=== PATIENT | male | born 1960 | race Caucasian/White ===

== ENCOUNTER → 2023-07-16 07:17 | Outpatient (REF) | payer BC, SELFPAY | LOC: DHCBS MAIN 07:17 | PROVIDERS: ATTENDING PHYSICIAN Internal Medicine Cardiovascular Disease; FAMILY PHYSICIAN Family Medicine | DX: I34.0 Nonrheumatic mitral (valve) insufficiency (principal); I50.32 Chronic diastolic (congestive) heart failure | CPT/HCPCS: 93306 ==

== ENCOUNTER → 2024-05-19 09:40 | Outpatient (REF) | payer BC, SELFPAY ==
[2024-05-19 10:50] LABS: ALT (SGPT) 21 U/L (0-50); AST (SGOT) 26 U/L (17-59); Albumin 4.2 g/dl (3.5-5.0); Alkaline Phosphatase 41 U/L (38-126); Blood Urea Nitrogen 19 mg/dl (9-20); Calcium 9.3 mg/dl (8.4-10.2); Carbon Dioxide 30 mmol/L (22-30); Chloride 102 mmol/L (98-107); Glucose 88 mg/dl (70-99); HDL Cholesterol 52 mg/dl; LDL Cholesterol, Calculated 52 mg/dl; Potassium 4.8 mmol/L (3.5-5.1); Sodium 139 mmol/L (135-145); Total Bilirubin 1.4 mg/dl (0.2-1.3); Total Cholesterol 120 mg/dl (50-199); Total Protein 7.3 g/dl (6.3-8.2); Triglyceride 84 mg/dl (10-149); Very Low Density Lipoprotein 16 mg/dl (0-30); eGFR > 60.00
[2024-05-19 10:59] LABS: NT-proBNP 939 pg/ml
[2024-05-19 11:21] LABS: TSH 0.61 uIU/ml (0.47-4.68)
== END ==
LOC: REG 09:40
PROVIDERS: ATTENDING PHYSICIAN Internal Medicine Cardiovascular Disease; FAMILY PHYSICIAN Family Medicine
DX: I10 Essential (primary) hypertension (principal); E78.00 Pure hypercholesterolemia, unspecified
CPT/HCPCS: 36415; 80053; 80061; 83880; 84443

== ENCOUNTER → 2024-06-10 07:28 | Outpatient (REF) | payer BC, SELFPAY | LOC: RCS 07:28 | PROVIDERS: ATTENDING PHYSICIAN Internal Medicine Cardiovascular Disease; FAMILY PHYSICIAN Family Medicine | DX: I21.09 ST elevation (STEMI) myocardial infarction involving other coronary artery of anterior wall (principal); I34.0 Nonrheumatic mitral (valve) insufficiency; I50.32 Chronic diastolic (congestive) heart failure | CPT/HCPCS: 93306 ==

== ENCOUNTER 2024-06-17 10:17 | Inpatient (IN) | payer BC, SELFPAY ==
--- NOTE | 2024-06-17 09:18 | W.PN.CARDCBS ---
Today's Communication / Plan
-
Start Tikosyn 500 mcg q 12 hours
Impression / Plan
-
PCP: Dr. Danielito Montelongo
Cardiology: Dr. NEREIDA Boykin
Impression:
Direct admission for Tikosyn load 06/17/24
Paroxysmal to persistent Afib
s/p PVI 03/2023
amiodarone stopped after PVI
Chronic Eliquis OAC
Chronic HFrEF
ICM EF 40-45% by echo 06/10/24
h/o orthostasis and near syncope 04/2024
Mild MR
Echo 06/10/24: EF 40 to 45% with mid and apical anteroseptal akinesis, mid and apical anterior, apical and apical lateral hypokinesis, mild to moderate MR, aortic sclerosis without stenosis, dilated right heart with mild TR and PAP 35 to 40 mmHg
Plan:
-Patient came to today as a direct admission for Tikosyn loading in the setting of paroxysmal, but recently more persistent A-fib. Patient has a history of cardioembolic anterior [place] treated at [facility] back in 04/2022. Thereafter
patient transferred care to . He had eventual PVI 03/2023 and thereafter his amiodarone was stopped. He was found to be in recurrent A-fib on 05/19/[address] Boykin talked to patient about Tikosyn loading and he was agreeable. In the interim
his Toprol-XL dose was increased and patient had an episode of what sounds like orthostasis and near syncope. Currently in A-fib with a heart rate in the 80s and BP 124/96. He is currently taking Toprol-XL 50 mg BID for rate control. He has not
missed any doses of Eliquis 5 mg BID.
-ECG reviewed by me shows A-fib with HR 85 bpm and QTc 442 ms.
-CrCl calculated by me is 134
-Start Tikosyn 500 mcg q 12 hours.
-Reviewed with patient and partner at length the Tikosyn loading protocol including monitoring of QTc and lowering dose as needed.
-Follow HR and BP and lower the Toprol XL 50 mg BID dose as needed
-Cont Eliquis 5 mg BID (age 63, wt 272 lbs)
-Patient with known ICM and EF 40 to 45% by last echo 06/10/2024
-Toprol XL as above
-Outpatient dose of spironolactone 12.5 mg daily will be continued
-Previous dose of Entresto 24/26 mg twice daily was stopped after the episode of orthostasis and near syncope 04/2024
-Outpatient dose of Jardiance 10 mg daily will be changed to Farxiga 10 mg daily this admission due to formulary reasons, but will resume Jardiance at time of discharge
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
Subjective
Date of Service: June 17, 2024
Feels well, no chest pain or palpitations
Objective
Labs:
Labs
Hgb Cancelled 06/16/24 07:27
Hct Cancelled 06/16/24 07:27
Plt Count Cancelled 06/16/24 07:27
Sodium Cancelled 06/16/24 07:27
Potassium Cancelled 06/16/24 07:27
BUN Cancelled 06/16/24 07:27
Creatinine Cancelled 06/16/24 07:27
Glucose Cancelled 06/16/24 07:27
CBC 06/17/2024: WBC 6.4, Hgb 15.9, PLT 187
CMP 06/17/2024: Sodium 136, potassium 4.3, BUN 20, creatinine 1.0, blood sugar 90, magnesium
Vital Signs and I&O:
124/96, HR 90, RR 16, pulse ox 95% on RA, temp 98.6
Physical Exam
Physical Exam
GEN: NAD. AAOx3
HEENT: EOMI, MMM
LUNGS: RA. No audible wheeze
CV: Afib on tele
ABD: ND
EXT: No edema B/L
NEURO: Gross non-focal
SKIN: No rash
[2024-06-17 10:41] VITALS: BP 124/96
[2024-06-17 10:42] VITALS: BMI 33.1
[2024-06-17] MEDS: FARXIGA PO ×2 (11:24→11:25)
[2024-06-17] MEDS: ALDACTONE PO ×2 (11:24→11:25)
[2024-06-17] MEDS: LASIX PO ×2 (11:24→11:25)
[2024-06-17] MEDS: LOW STRENGTH ASPIRIN PO ×2 (11:24→11:25)
[2024-06-17] MEDS: SYNTHROID PO (11:25)
[2024-06-17] MEDS: CRESTOR PO (11:25)
[2024-06-17 11:46] LABS: % Basophils 0.9 % (0-2); % Eosinophils 1.3 % (0-6); % Immature Granulocytes 0.2 % (0-0.5); % Monocytes 10.4 % (1.7-9.3); % Neutrophils 65.2 % (42.2-75.2); Absolute Basophils 0.1 10^3/uL (0-0.2); Absolute Eosinophils 0.1 10^3/uL (0-0.7); Absolute Lymphocytes 1.4 10^3/uL (1.2-3.4); Absolute Monocytes 0.7 10^3/uL (0.1-0.6); Absolute Neutrophils 4.2 10^3/uL (1.4-6.5); Hematocrit 48.8 % (39.0-52.0); Hemoglobin 15.9 g/dL (13.0-18.0); Mean Corp Hgb Conc. 32.6 g/dL (33.0-37.0); Mean Corpuscular Hgb 27.7 pg (27.0-31.0); Mean Corpuscular Volume 85.2 fL (80.0-94.0); Mean Platelet Volume 9.4 fL (7.4-10.4); Nucleated Red Blood Cells % 0 % (-); Platelet Count 187 10^3/uL (130-400); Red Blood Cell Count 5.73 10^6/uL (4.70-6.10); Red Cell Dist. Width 14.6 % (11.5-14.5); White Blood Cell Count 6.4 10^3/uL (4.8-10.8)
[2024-06-17 11:59] LABS: Blood Urea Nitrogen 20 mg/dl (9-20); Calcium 9.5 mg/dl (8.4-10.2); Carbon Dioxide 25 mmol/L (22-30); Chloride 105 mmol/L (98-107); Estimated Creatinine Clearance 110 ml/min; Glucose 90 mg/dl (70-99); Potassium 4.3 mmol/L (3.5-5.1); Sodium 136 mmol/L (135-145); eGFR > 60.00
--- NOTE | 2024-06-17 12:08 | W.CARD.TIKOS ---
Addendum entered and electronically signed by Nick Boykin MD 06/17/24 17:56:
63-year-old man who had a large anterior WI that was cardioembolic from atrial fibrillation in April 2022, initial EF 15 to 20%, treated with PCI. Ultimately, he underwent cardioversion and was started on amiodarone. His ejection fraction
improved to 47% by May 2022, and so ICD implantation was never performed. Ultimately he was referred for PVI in late 2022. He had self-limited atrial fibrillation thereafter.. He was evaluated by our office in late April 2024 and was in
atrial fibrillation which at that point we felt was persistent. A monitor was applied and this confirmed atrial fibrillation. An echocardiogram was repeated June 10, 2024. He had akinesis in the distribution of the mid LAD with an ejection
fraction of 40 to 45%. There was mitral annular calcification, mild to moderate mitral digitation, and a dilated atrium. His pulmonary artery pressure was 35 to 40 mmHg. He is now admitted for dofetilide loading and cardioversion.
Meds and allergies Per summary screen
PMH: In addition to above, hypertension, hyperlipidemia, mild mitral regurgitation, obstructive sleep apnea and heart failure with improved EF
PSH: Paraesophageal hernia repair, laparoscopic
Remainder of history per scanned office history and physical
134/96, pulse 100 irregular, no distress, head neck exam unremarkable, lungs clear, irregular rate and rhythm, no obvious murmurs, abdomen obese, extremities without edema
ECG atrial fibrillation, QTc 442 ms, anterior septal WI, possible inferior WI
Labs: Reviewed
Impression:
Persistent atrial fibrillation
Heart failure with improved EF, compensated
Cardioembolic anterior WI April 2022 status post PCI
PVI March 2023
Hypertension
Hypercholesterolemia
Mild mitral agitation
Obstructive sleep apnea
Plan:
Dofetilide loading and cardioversion
Original Note:
Initiate Tikosyn
-
I verify that the patient has not taken any verapamil (Isoptin/Calan), ketoconazole (Nizoral), cimetidine (Tagamet), trimethoprim (Trimpex), trimethoprim/sulfamethoxazole (Bactrim), megesterol (Megace), prochlorperazine (Compazine),
hydrochlorothiazide (HCTZ), dolutegravir (Tivicay) or any Class I or Class III anti-arrhythmic within the last three days
AND
I verify that the patient has not taken amiodarone within the last THREE months, or that the patient's amiodarone plasma concentration is <0.3 mcg/mL.
Creatinine 1.0 mg/dL (0.7-1.3) 06/17/24 11:21
Estimated Creat Clear 110 ml/min 06/17/24 11:21
CrCl calculated by me is 134 based on actual body weight 272 lbs
Does patient have a Ventricular Conduction Abnormality: No
I have assessed the baseline QTc interval (using QT for heart rate less than 60 bpm) and deemed the patient is appropriate for Dofetilide therapy. I understand that Tikosyn is contraindicated if the QTc is >440msec (500msec in patients with
ventricular conduction abnormalities).
Baseline QTc (in msec): 442
QTc interval is greater than 440msec without conduction abnormality OR greater than 500msec with a conduction abnormality, but acceptable to proceed per Cardiology attending.
Reason for Administration with Prolonged QTc: Other Atrial Arrhythmia
Ordering Physician: Nick Boykin
--- NOTE | 2024-06-17 12:10 | PTCARENOTE ---
Patient admitted to room 2247 for tikosyn loading. Patient in controlled AF on the monitor, oriented to the room and plan of care. Nursing admission assessment completed, labs drawn, EKG done, INT placed and plan to initiate tikosyn dose. Patient
offers no complaints, call tillman in reach, SO at the bedside.
[2024-06-17] MEDS: TIKOSYN 500 MCG PO ×2 (12:40→23:04)
--- NOTE | 2024-06-17 14:50 | CM ---
spoke to pt in room, he is prev indep, lives alone in a 2 story home with no steps to enter. no dc planning needs or dme's. plan is for [facility], clive following
[2024-06-17 15:34] VITALS: BP 134/96
--- NOTE | 2024-06-17 17:07 | W.PN.UPDATE ---
Update Note
Progress Note Update
QTc 494 ms on ECG 2 hours after initial dose of Tikosyn earlier today. Will continue with Tikosyn 500 mcg every 12 hours and follow-up on ECG after tonight's dose and can lower dose in the a.m. if needed.
[2024-06-17] MEDS: CRESTOR 40 MG PO (17:30)
[2024-06-17 18:58] VITALS: BP 139/100
[2024-06-17 19:39] VITALS: BP 125/88
[2024-06-17] MEDS: ELIQUIS 5 MG PO (19:39)
[2024-06-17] MEDS: TOPROL XL 50 MG PO (19:39)
--- NOTE | 2024-06-17 21:05 | PTCARENOTE ---
assumed care of patient at the change of shift. AAOx3. independent in the room. Afib on tele 70s-90s. bp stable. reviewed plan of care with patient and verbalized understanding. call tillman within reach. makes needs known.
[2024-06-17 23:03] VITALS: BP 112/83
[2024-06-18] VITALS (7 sets, daily range): BP systolic 118–142; BP diastolic 87–96; BMI 33.2
[2024-06-18 05:31] LABS: Blood Urea Nitrogen 17 mg/dl (9-20); Calcium 9.2 mg/dl (8.4-10.2); Carbon Dioxide 28 mmol/L (22-30); Chloride 101 mmol/L (98-107); Estimated Creatinine Clearance 110 ml/min; Glucose 89 mg/dl (70-99); Potassium 4.2 mmol/L (3.5-5.1); Sodium 135 mmol/L (135-145); eGFR > 60.00
[2024-06-18] MEDS: SYNTHROID 50 MCG PO (06:17)
--- NOTE | 2024-06-18 07:23 | W.PN.CARDCBS ---
Addendum entered and electronically signed by Devin Hogan DO 06/18/24 10:17:
I saw and examined the patient.
The Lvn's note was reviewed and I agree with the note.
Comment:
Plan:
Tikosyn dose reduced to 250 mcg given QTc prolonging
Cont to monitor EKG
CV tomorrow if he fails to convert on his own.
Cont Eliquis
Outpt follow up with Dr Boykin
Original Note:
Today's Communication / Plan
-
QTc up to 502 after 2nd dose of Tikosyn 500 mcg late last night, will cut dose to 250 mcg q 12 hours and follow ECG
Impression / Plan
-
PCP: Dr. Danielito Montelongo
Cardiology: Dr. NEREIDA Boykin
Impression:
Direct admission for Tikosyn load 06/17/24
Paroxysmal to persistent Afib
s/p PVI 03/2023
amiodarone stopped after PVI
Chronic Eliquis OAC
Chronic HFrEF
ICM EF 40-45% by echo 06/10/24
h/o orthostasis and near syncope 04/2024
Mild MR
Echo 06/10/24: EF 40 to 45% with mid and apical anteroseptal akinesis, mid and apical anterior, apical and apical lateral hypokinesis, mild to moderate MR, aortic sclerosis without stenosis, dilated right heart with mild TR and PAP 35 to 40 mmHg
Plan:
-QTc 502 ms by ECG Sunday following 2nd dose of Tikosyn 500 mcg that was given Sunday. Recheck ECG now and if QTc stable or improved then will start Tikosyn 250 mcg q 12 hours for the 3rd dose on Sunday
-Remains in SR. Will arrange for CV in AM
-Cont outpatient dose of Toprol XL 50 mg BID for now. Pending HR response in SR might need to lower dose of Toprol XL
-Cont Eliquis 5 mg BID (age 63, wt 272 lbs)
-Patient with known ICM and EF 40 to 45% by last echo 06/10/2024
-Toprol XL as above
-Outpatient dose of spironolactone 12.5 mg daily will be continued
-Previous dose of Entresto 24/26 mg twice daily was stopped after the episode of orthostasis and near syncope 04/2024. Follow BP this admission and consider starting low dose REJI/ARB
-Outpatient dose of Jardiance 10 mg daily will be changed to Farxiga 10 mg daily this admission due to formulary reasons, but will resume Jardiance at time of discharge
HPI: Patient came to today as a direct admission for Tikosyn loading in the setting of paroxysmal, but recently more persistent A-fib. Patient has a history of cardioembolic anterior [place] treated at [facility] back in 04/2022.
Thereafter patient transferred care to . He had eventual PVI 03/2023 and thereafter his amiodarone was stopped. He was found to be in recurrent A-fib on 05/19/[address] Boykin talked to patient about Tikosyn loading and he was agreeable. In
the interim his Toprol-XL dose was increased and patient had an episode of what sounds like orthostasis and near syncope. Currently in A-fib with a heart rate in the 80s and BP 124/96. He is currently taking Toprol-XL 50 mg BID for rate control.
He has not missed any doses of Eliquis 5 mg BID.
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
Subjective
Date of Service: June 18, 2024
Feels well, no palpitations
Objective
Labs:
06/17/24 11:21
06/18/24 04:11
Labs
Hgb 15.9 g/dL (13.0-18.0) 06/17/24 11:21
Hct 48.8 % (39.0-52.0) 06/17/24 11:21
Plt Count 187 10^3/uL (130-400) 06/17/24 11:21
Sodium 135 mmol/L (135-145) 06/18/24 04:11
Potassium 4.2 mmol/L (3.5-5.1) 06/18/24 04:11
BUN 17 mg/dl (9-20) 06/18/24 04:11
Creatinine 1.0 mg/dL (0.7-1.3) 06/18/24 04:11
Glucose 89 mg/dl (70-99) 06/18/24 04:11
Vital Signs and I&O:
Vital Signs
Temp Pulse Resp BP Pulse Ox
97.7 F 99 20 121/95 96
06/18/24 04:07 06/18/24 04:30 06/18/24 04:07 06/18/24 04:07 06/18/24 04:07
Vital Signs
Temp Pulse Resp BP Pulse Ox
97.7 F 99 20 121/95 96
06/18/24 04:07 06/18/24 04:30 06/18/24 04:07 06/18/24 04:07 06/18/24 04:07
Intake & Output
06/16/24 06/17/24 06/18/24 06/19/24
06:59 06:59 06:59 06:59
Intake Total 920 / 920
Balance 920 / 920
Physical Exam
Physical Exam
GEN: NAD. AAOx3
HEENT: EOMI, MMM
LUNGS: RA. No audible wheeze
CV: Afib on tele
ABD: ND
EXT: No edema B/L
NEURO: Gross non-focal
SKIN: No rash
[2024-06-18] MEDS: ALDACTONE 12.5 MG PO (08:04)
[2024-06-18] MEDS: TOPROL XL 50 MG PO ×2 (08:04→19:38)
[2024-06-18] MEDS: FLUSH (NSS) 1 FLUSH IV (08:04)
[2024-06-18] MEDS: LOW STRENGTH ASPIRIN 81 MG PO (08:04)
[2024-06-18] MEDS: ELIQUIS 5 MG PO ×2 (08:04→19:38)
[2024-06-18] MEDS: FARXIGA 10 MG PO (08:04)
[2024-06-18] MEDS: LASIX 40 MG PO (08:04)
--- NOTE | 2024-06-18 09:21 | PTCARENOTE ---
Received patient this morning ambulating in the halls. Remains in AF. QTc after second dose of tikosyn last night > 500. EKG done this AM at 0900 and will give decreased dose of 250mcg at 1000 as ordered. Patient updated.
[2024-06-18] MEDS: TIKOSYN 250 MCG PO ×2 (09:58→20:33)
--- NOTE | 2024-06-18 14:01 | CM ---
CM following for DC planning needs.
Met w/ patient, sig. other at bedside. Pt. reports that he is feeling well.
Will call pharmacy once dosage of Dofetilide is confirmed to ensure stock. Will need to be sent home w/ x3 d supply of Dofetilide. Will check pricing upon DC. This was reviewed w/ pt.
Anticipated DC plan is for home, no needs.
Will follow.
--- NOTE | 2024-06-18 17:11 | W.PN.UPDATE ---
Update Note
Progress Note Update
QTc 497 ms following third dose of Tikosyn today. Patient was given Tikosyn 500 mcg x 2 yesterday and QTc prolonged to 502 ms so dose was loaded 250 mcg. Continue Tikosyn 250 mcg every 12 hours. Patient is n.p.o. for CV in a.m.
[2024-06-18] MEDS: CRESTOR 40 MG PO (17:43)
--- NOTE | 2024-06-18 20:44 | PTCARENOTE ---
pt received at change of shift. pt seen and assessed in room. pt AOx3, tele reading Afib in the 90s-110s. This RN discussed POC with pt, pt verbalizes understanding. 4th dose of tikosyn given to pt at 2029. EKG to be done at 2230. No complaints of
pain at this time. Call tillman within reach. Continuing to monitor at this time.
[2024-06-19] VITALS (7 sets, daily range): BP systolic 103–145; BP diastolic 76–109; BMI 33.1
[2024-06-19] MEDS: SYNTHROID 50 MCG PO (04:31)
--- NOTE | 2024-06-19 07:38 | W.PN.CARDCBS ---
Addendum entered and electronically signed by Devin Hogan DO 06/19/24 12:24:
I saw and examined the patient.
The Repairer Welding Equipment's note was reviewed and I agree with the note.
Comment:
Plan:
Successful cardioversion back to sinus
Cont Tikosyn and Toprol
Cont Eliquis
Outpt follow up arranged.
Discussed with his via phone.
Stable for d/c.
Original Note:
Today's Communication / Plan
-
Recheck ECG after CV to decide on final dose of Tikosyn and Toprol XL
Likely d/c to home later today
Impression / Plan
-
PCP: Dr. Danielito Montelongo
Cardiology: Dr. NEREIDA Boykin
Impression:
Direct admission for Tikosyn load 06/17/24
Paroxysmal to persistent Afib
s/p PVI 03/2023
amiodarone stopped after PVI
Chronic Eliquis OAC
Chronic HFrEF
ICM EF 40-45% by echo 06/10/24
h/o orthostasis and near syncope 04/2024
Mild MR
Echo 06/10/24: EF 40 to 45% with mid and apical anteroseptal akinesis, mid and apical anterior, apical and apical lateral hypokinesis, mild to moderate MR, aortic sclerosis without stenosis, dilated right heart with mild TR and PAP 35 to 40 mmHg
Plan:
-Initiated on Tikosyn 500 mcg, but QTc prolonged to 502 ms after 2nd dose on Sunday night. Dose reduced to 250 mcg q 12 hours starting Sunday. Patient received 4th dose of Tikosyn 250 mcg Sunday night and QTc was 513 two hours later.
ECG repeated prior to next scheduled Tikosyn dose and the QTc improved to 454 ms. 5th dose of Tikosyn 250 mcg given and QTc was 502 two hours later. Plan is for CV Thursday morning and will recheck ECG after CV.
-Cont outpatient dose of Toprol XL 50 mg BID for now. Pending HR response in SR might need to lower dose of Toprol XL
-Cont Eliquis 5 mg BID (age 63, wt 272 lbs)
-Patient with known ICM and EF 40 to 45% by last echo 06/10/2024
-Toprol XL as above
-Outpatient dose of spironolactone 12.5 mg daily will be continued
-Previous dose of Entresto 24/26 mg twice daily was stopped after the episode of orthostasis and near syncope 04/2024. Follow BP this admission and consider starting low dose REJI/ARB
-Outpatient dose of Jardiance 10 mg daily will be changed to Farxiga 10 mg daily this admission due to formulary reasons, but will resume Jardiance at time of discharge
-Likely d/c to home 06/19/24 pending QTc and HR after CV.
HPI: Patient came to today as a direct admission for Tikosyn loading in the setting of paroxysmal, but recently more persistent A-fib. Patient has a history of cardioembolic anterior [place] treated at [facility] back in 04/2022.
Thereafter patient transferred care to . He had eventual PVI 03/2023 and thereafter his amiodarone was stopped. He was found to be in recurrent A-fib on 05/19/[address] Boykin talked to patient about Tikosyn loading and he was agreeable. In
the interim his Toprol-XL dose was increased and patient had an episode of what sounds like orthostasis and near syncope. Currently in A-fib with a heart rate in the 80s and BP 124/96. He is currently taking Toprol-XL 50 mg BID for rate control.
He has not missed any doses of Eliquis 5 mg BID.
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
Subjective
Date of Service: June 19, 2024
He feels well
Objective
Labs:
06/17/24 11:21
06/18/24 04:11
Labs
Hgb 15.9 g/dL (13.0-18.0) 06/17/24 11:21
Hct 48.8 % (39.0-52.0) 06/17/24 11:21
Plt Count 187 10^3/uL (130-400) 06/17/24 11:21
Sodium 135 mmol/L (135-145) 06/18/24 04:11
Potassium 4.2 mmol/L (3.5-5.1) 06/18/24 04:11
BUN 17 mg/dl (9-20) 06/18/24 04:11
Creatinine 1.0 mg/dL (0.7-1.3) 06/18/24 04:11
Glucose 89 mg/dl (70-99) 06/18/24 04:11
Vital Signs and I&O:
Vital Signs
Temp Pulse Resp BP Pulse Ox
97.8 F 96 18 134/96 98
06/19/24 04:00 06/19/24 04:30 06/19/24 04:00 06/19/24 04:23 06/19/24 04:00
Vital Signs
Temp Pulse Resp BP Pulse Ox
97.8 F 96 18 134/96 98
06/19/24 04:00 06/19/24 04:30 06/19/24 04:00 06/19/24 04:23 06/19/24 04:00
Intake & Output
06/17/24 06/18/24 06/19/24 06/20/24
06:59 06:59 06:59 06:59
Intake Total 920 / 920 1400 / 1400
Balance 920 / 920 1400 / 1400
Physical Exam
Physical Exam
GEN: NAD. AAOx3
HEENT: EOMI, MMM
LUNGS: RA. No audible wheeze
CV: Afib on tele
ABD: ND
EXT: No edema B/L
NEURO: Gross non-focal
SKIN: No rash
[2024-06-19] MEDS: LOW STRENGTH ASPIRIN 81 MG PO (08:24)
[2024-06-19] MEDS: FARXIGA 10 MG PO (08:24)
[2024-06-19] MEDS: ALDACTONE 12.5 MG PO (08:25)
[2024-06-19] MEDS: LASIX 40 MG PO (08:25)
[2024-06-19] MEDS: TOPROL XL 50 MG PO (08:25)
[2024-06-19] MEDS: ELIQUIS 5 MG PO (08:25)
[2024-06-19] MEDS: TIKOSYN 250 MCG PO (08:28)
--- NOTE | 2024-06-19 12:25 | ITS.CL.CARDI ---
Telecommunications Equipment Installer - Cardioversion
Cardioversion
Procedure Report:
Date of Procedure: Jun 19 2024
Procedure: Cardioversion
Indication: Symptomatic atrial fibrillation
Performing Physician: Devin Hogan DO, FACC
Technique: The patient was brought to the holding area. Signed informed consent was obtained. A time out was called and performed. The patient was anesthetized by the anesthesia service. Anticoagulation status was reviewed and appropriate. R2 pads
were placed anteriorly and posteriorly. A 250 J synchronized biphasic shock restored normal sinus rhythm without significant bradycardia. There were no complications.
Conclusion: Uncomplicated cardioversion from atrial fibrillation to sinus rhythm.
Recommendation: Routine post cardioversion care. Continue adjunct faculty for medical terminology anticoagulation.
--- NOTE | 2024-06-19 15:01 | CM ---
CM following for DC planning needs.
Pt. for DC today; order noted.
Call to patient's pharmacy/[facility] pay is $5 and they have Dofetilide 250 mcg in stock.
3d RX will be provided to patient prior to DC.
Met w/ patient and spouse to review.
Antic. DC today to home, no needs.
--- NOTE | 2024-06-19 16:30 | PTCARENOTE ---
pt received this am in afib, rate in the 80's to 100's. OOB ad marnie, denies any pain, sob or palpitations. Pt returned from cardioversion in SR. Pt later discharged to home with his girlfriend. Discharge instructions given and reviewed with good
understanding. Pt sent home with 3 days of Tikosyn.
== END 2024-06-19 16:46 | disposition home or self-care (01) | DRG 309 ==
LOC: IVU 10:17
PROVIDERS: Nuclear Medicine Nuclear Cardiology; Nurse Practitioner; ADMITTING PHYSICIAN Internal Medicine Cardiovascular Disease; FAMILY PHYSICIAN Family Medicine
PROC: 5A2204Z Restoration of Cardiac Rhythm, Single (ICD-10-PCS; 2024-06-19)
DX: I48.19 Other persistent atrial fibrillation (principal); I50.22 Chronic systolic (congestive) heart failure; G47.33 Obstructive sleep apnea (adult) (pediatric); I11.0 Hypertensive heart disease with heart failure; E78.00 Pure hypercholesterolemia, unspecified; I25.2 Old myocardial infarction; Z98.61 Coronary angioplasty status; Z79.01 Long term (current) use of anticoagulants; Z60.2 Problems related to living alone
CPT/HCPCS: 80048; 83735; 85025; 92960; 93005

== ENCOUNTER → 2024-09-02 09:59 | Outpatient (REF) | payer BC, SELFPAY ==
[2024-09-02 13:12] LABS: Blood Urea Nitrogen 22 mg/dl (9-20); Calcium 9.4 mg/dl (8.4-10.2); Carbon Dioxide 26 mmol/L (22-30); Chloride 109 mmol/L (98-107); Glucose 79 mg/dl (70-99); Potassium 3.8 mmol/L (3.5-5.1); Sodium 143 mmol/L (135-145); eGFR > 60.00
== END ==
LOC: REG 09:59
PROVIDERS: ATTENDING PHYSICIAN Nurse Practitioner
DX: I48.0 Paroxysmal atrial fibrillation (principal); I50.32 Chronic diastolic (congestive) heart failure
CPT/HCPCS: 36415; 80048

== ENCOUNTER → 2024-11-11 11:40 | Outpatient (REF) | payer BC, SELFPAY | LOC: RCS 11:40 | PROVIDERS: ATTENDING PHYSICIAN Internal Medicine Cardiovascular Disease; FAMILY PHYSICIAN Family Medicine | DX: I21.09 ST elevation (STEMI) myocardial infarction involving other coronary artery of anterior wall (principal); I25.5 Ischemic cardiomyopathy; I25.9 Chronic ischemic heart disease, unspecified | CPT/HCPCS: 78452; 93017; A9500 ==